=== PATIENT | male | born 1950 | race Caucasian/White ===

== ENCOUNTER 2016-03-17 13:39 | Inpatient (IN) | payer OTHER ==
[2016-03-16 14:30] VITALS: O2SAT 97
[~2016-03-17] VITALS: Ht 172.7 cm; Wt 75.0 kg
[~2016-03-17 13:39] MED LIST: ACYC-1 PO; ALBU8I INH; CARV12.52 PO; CHOL1CAP6 PO; DIOV320T PO; OMEP20TA PO; PROC90TA PO; TRAZ50TA4 PO
[2016-03-17 13:41] VITALS: BP 148/78; PULSE 82; RESP 14; TEMP 98.3; O2SAT 95
[2016-03-17] MEDS ORDERED: SODIUM CHLORIDE 0.9% FLUSH 5 ML FLUSH IVF PRN (14:15)
[2016-03-17] MEDS ORDERED: KETOROLAC TROMETHAMINE 30 MG/ML (IVP) VIAL IV PUSH ONE (14:15)
[2016-03-17] MEDS ORDERED: VITA100T15 PO (14:19)
[2016-03-17] MEDS ORDERED: MIRTA15 PO (14:19)
[2016-03-17] MEDS ORDERED: VALS1TAB70 PO (14:19)
[2016-03-17] MEDS ORDERED: CARV25TA PO (14:19)
[2016-03-17] MEDS ORDERED: TRAZ50TA12 PO (14:19)
[2016-03-17] MEDS ORDERED: NIFE20 PO (14:19)
[2016-03-17] MEDS ORDERED: HARVONI PO (14:19)
[2016-03-17] MEDS ORDERED: D 101000 (14:19)
[2016-03-17] MEDS ORDERED: OMEP20TA PO (14:19)
--- NOTE | 2016-03-17 14:33 | PD ---
HPI Chief Complaint: Dizziness Time Seen by Provider: 14:06 Travel History International Travel<30 days: No Contact w/Intl Traveler<30days: No Traveled to known affect area: No History of Present Illness HPI 66-year-old male with history of COPD still smoking, hepatitis C here with complaint of dizziness and flulike symptoms. Patient has been ill for the last 3 days with body aches, low-grade fevers in the 99 range, increased chronic cough. He notes generalized bodyaches, but no focal pain. He has a slight chronic smoker's cough that is slightly increased from his baseline. Primarily dry and nonproductive. He notes a sense of pressure within the sinuses and ears with a slight vertiginous symptom. He denies any significant nasal drainage or congestion. No recent travel or sick contacts. 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) Other Surgery: Yes (HERNIA REPAIR) Family History Family Hypercholesterolemia: Yes Social History Alcohol Use: Yes (6PK DAY) Tobacco Use: Yes (1/2 PPD) Substance Use: No Allergies-Medications (Allergen,Severity, Reaction): Coded Allergies: Wasp (Verified Allergy, Severe, 03/17/16) USES EPI PEN Aspirin (Verified Adverse Reaction, Mild, 03/17/16) states not supposed to take 2/2 hx hep C Reported Meds & Prescriptions Reported Meds & Active Scripts Active Reported Trazodone (Trazodone HCl) 50 Mg Tab 50 Mg PO BID Carvedilol 25 Mg Tab 25 Mg PO BID [Harvoni] 90 Mg PO DAILY Vitamin B12 (Cyanocobalamin) 100 Mcg Tab 1,000 Mcg PO DAILY Valsartan 320 Mg Tab 320 Mg PO DAILY Nifedipine 20 Mg Cap 30 Mg PO DAILY D 1000 (Cholecalciferol) 1,000 Unit Cap Mirtazapine 15 Mg Tab 15 Mg PO HS Omeprazole 20 Mg Tab 20 Mg PO DAILY Review of Systems Except as stated in HPI: all other systems reviewed are Neg Physical Exam Narrative GENERAL: Elderly in no acute distress SKIN: Warm and dry. HEAD: Normocephalic. EYES:No scleral icterus. No injection or drainage. ENT: Nasal mucosal injection. Posterior pharynx is clear. Mucous membranes pink and moist. TMs clear bilaterally with small clear effusion. NECK: Supple CARDIOVASCULAR: Regular rate and rhythm. No murmur appreciated. RESPIRATORY: No accessory muscle use. Expiratory wheeze GASTROINTESTINAL: Abdomen soft, non-tender, nondistended. MUSCULOSKELETAL: No edema. NEUROLOGICAL: Awake and alert. Motor grossly within normal limits. Normal speech. PSYCHIATRIC: Appropriate mood and affect; insight and judgment normal. Data Data Last Documented VS Vital Signs Date Time Temp Pulse Resp B/P Pulse Ox O2 Delivery O2 Flow Rate FiO2 03/17/16 13:41 98.3 82 14 148/78 95 Room Air 03/16/16 14:30 21 Orders Complete Blood Count With Diff (03/17/16 14:10) Basic Metabolic Panel (Bmp) (03/17/16 14:10) Influenzae A/B Antigen (03/17/16 14:10) Iv Access Insert/Monitor (03/17/16 14:10) Chest, Single Ap (03/17/16 14:10) Sodium Chloride 0.9% Flush (Ns Flush) (03/17/16 14:15) Albuterol-Ipratropium Neb (Duoneb Neb) (03/17/16 14:15) Ketorolac Inj (Toradol Inj) (03/17/16 14:15) Ct Thorax/ Chest W Iv Contrast (03/17/16 ) Labs Laboratory Tests Test 03/17/16 14:30 White Blood Count 9.2 TH/MM3 Red Blood Count 3.92 MIL/MM3 Hemoglobin 12.8 GM/DL Hematocrit 37.9 % Mean Corpuscular Volume 96.6 FL Mean Corpuscular Hemoglobin 32.7 PG Mean Corpuscular Hemoglobin 33.9 % Concent Red Cell Distribution Width 13.5 % Platelet Count 166 TH/MM3 Mean Platelet Volume 7.4 FL Neutrophils (%) (Auto) 68.5 % Lymphocytes (%) (Auto) 21.0 % Monocytes (%) (Auto) 8.0 % Eosinophils (%) (Auto) 1.5 % Basophils (%) (Auto) 1.0 % Neutrophils # (Auto) 6.3 TH/MM3 Lymphocytes # (Auto) 1.9 TH/MM3 Monocytes # (Auto) 0.7 TH/MM3 Eosinophils # (Auto) 0.1 TH/MM3 Basophils # (Auto) 0.1 TH/MM3 CBC Comment DIFF FINAL Differential Comment Sodium Level 139 MEQ/L Potassium Level 3.5 MEQ/L Chloride Level 107 MEQ/L Carbon Dioxide Level 21.5 MEQ/L Anion Gap 11 MEQ/L Blood Urea Nitrogen 17 MG/DL Creatinine 1.37 MG/DL Estimat Glomerular Filtration 52 ML/MIN Rate Random Glucose 112 MG/DL Calcium Level 8.7 MG/DL MDM Medical Decision Making Medical Screen Exam Complete: Yes Emergency Medical Condition: Yes Medical Record Reviewed: Yes Differential Diagnosis 66-year-old male with history of COPD still smoking, hepatitis C here with 3 days of flulike symptoms. Differential includes viral syndrome, influenza, sinusitis, otitis, COPD exacerbation, bronchitis, pneumonia. Narrative Course Patient placed on monitor, IV established and blood obtained. Patient given 30 mg Toradol, DuoNeb 2. Portable chest x-ray showed bilateral basilar faint areas of airspace disease, somewhat rounded, infiltrate versus mass. Recommend CT. CBC, BMP, influenza unremarkable. CT of the chest with IV contrast ordered , results remain pending at the time this dictation. Patient signed out to oncoming provider waiting results of same. Sissy Garcia MD Mar 17, 2016 14:33
[2016-03-17] MEDS: RESP: ALBUTEROL 2.5 MG/IPRATROPIUM 0.5 MG NEB (SCH) INH ×2 (14:42→14:43)
[2016-03-17 14:53] LABS: AUTOMATED NEUTROPHIL # 6.3 TH/MM3 (1.8-7.7); BASOPHIL # 0.1 TH/MM3 (0-0.2); EOSINOPHIL # 0.1 TH/MM3 (0-0.4); EOSINOPHIL % 1.5 % (0.0-4.0); HEMATOCRIT 37.9 % (39.0-51.0); HEMO FLAGS DIFF FINAL; LYMPHOCYTE # 1.9 TH/MM3 (1.0-4.8); MEAN CELL VOLUME 96.6 FL (80.0-100.0); MEAN CORPUSCULAR HEMOGLOBIN 32.7 PG (27.0-34.0); MEAN CORPUSCULAR HGB CONC 33.9 % (32.0-36.0); NEUT % 68.5 % (16.0-70.0); PLATELET COUNT 166 TH/MM3 (150-450); RED BLOOD COUNT 3.92 MIL/MM3 (4.50-5.90); RED CELL DISTRIBUTION WIDTH 13.5 % (11.6-17.2); WHITE BLOOD COUNT 9.2 TH/MM3 (4.0-11.0)
[2016-03-17 15:02] LABS: BICARBONATE 21.5 MEQ/L (21.0-32.0); POTASSIUM 3.5 MEQ/L (3.5-5.1)
--- NOTE | 2016-03-17 15:25 | RADRPT ---
EXAM DATE/TIME: 03/17/2016 15:15 [facility] COMPARISON: No previous studies available for comparison. INDICATIONS : Short of breath. Pt. c/o weakness, and has a low grade fever. MEDICAL HISTORY : None. SURGICAL HISTORY : None. ENCOUNTER: Initial ACUITY: 4 - 6 days PAIN SCORE: 0/10 LOCATION: Bilateral chest FINDINGS: Faint patchy densities or airspace disease is noted in both lung bases laterally on the right and bas al laterally on the left. Differential is infiltrate versus mass. CT scan recommended . CONCLUSION: Bilateral basilar faint areas of airspace disease somewhat rounded which could represent either infil trate or subtle mass. CT scan recommended Sebas Thomas MD on March 17, 2016 at 15:21 Board Certified Radiologist. This report was verified electronically.
[2016-03-17 16:30] VITALS: BP 154/76; PULSE 90; RESP 19; O2SAT 95
[2016-03-17] MEDS ORDERED: IOHEXOL 350 MG/ML 10 ML VIAL (for RAD DIAG) IV ONE (16:59)
--- NOTE | 2016-03-17 17:07 | PD ---
Physical Exam Narrative Patient was seen by ED physician and signed out to me. Data Data Last Documented VS Vital Signs Date Time Temp Pulse Resp B/P Pulse Ox O2 Delivery O2 Flow Rate FiO2 03/17/16 13:41 98.3 82 14 148/78 95 Room Air 03/16/16 14:30 21 Orders Complete Blood Count With Diff (03/17/16 14:10) Basic Metabolic Panel (Bmp) (03/17/16 14:10) Influenzae A/B Antigen (03/17/16 14:10) Iv Access Insert/Monitor (03/17/16 14:10) Chest, Single Ap (03/17/16 14:10) Sodium Chloride 0.9% Flush (Ns Flush) (03/17/16 14:15) Albuterol-Ipratropium Neb (Duoneb Neb) (03/17/16 14:15) Ketorolac Inj (Toradol Inj) (03/17/16 14:15) Ct Thorax/ Chest W Iv Contrast (03/17/16 ) Iohexol 350 Inj (Omnipaque 350 Inj) (03/17/16 16:59) Labs Laboratory Tests Test 03/17/16 14:30 White Blood Count 9.2 TH/MM3 Red Blood Count 3.92 MIL/MM3 Hemoglobin 12.8 GM/DL Hematocrit 37.9 % Mean Corpuscular Volume 96.6 FL Mean Corpuscular Hemoglobin 32.7 PG Mean Corpuscular Hemoglobin 33.9 % Concent Red Cell Distribution Width 13.5 % Platelet Count 166 TH/MM3 Mean Platelet Volume 7.4 FL Neutrophils (%) (Auto) 68.5 % Lymphocytes (%) (Auto) 21.0 % Monocytes (%) (Auto) 8.0 % Eosinophils (%) (Auto) 1.5 % Basophils (%) (Auto) 1.0 % Neutrophils # (Auto) 6.3 TH/MM3 Lymphocytes # (Auto) 1.9 TH/MM3 Monocytes # (Auto) 0.7 TH/MM3 Eosinophils # (Auto) 0.1 TH/MM3 Basophils # (Auto) 0.1 TH/MM3 CBC Comment DIFF FINAL Differential Comment Sodium Level 139 MEQ/L Potassium Level 3.5 MEQ/L Chloride Level 107 MEQ/L Carbon Dioxide Level 21.5 MEQ/L Anion Gap 11 MEQ/L Blood Urea Nitrogen 17 MG/DL Creatinine 1.37 MG/DL Estimat Glomerular Filtration 52 ML/MIN Rate Random Glucose 112 MG/DL Calcium Level 8.7 MG/DL [facility] Supervised Visit with RAUDEL: No Interpretation(s) Last Impressions Chest X-Ray 03/17/16 1410 Signed Impressions: Service Date/Time: Thursday, March 17, 2016 15:15 - CONCLUSION: Bilateral basilar faint areas of airspace disease somewhat rounded which could represent either infiltrate or subtle mass. CT scan recommended Sebas Thomas MD Chest CT 03/17/16 0000 Signed Impressions: Service Date/Time: Thursday, March 17, 2016 16:35 - CONCLUSION: 1. Mild emphysema with multiple patchy foci of airspace consolidation some of which appear mildly nodular. These are peripherally oriented and raise suspicion for septic emboli. Other potential considerations include cryptogenic organizing pneumonia (AMPOULE SEALER). The appearance is not typical for metastatic disease. Some other considerations would include pulmonary vasculitis or eosinophilic pneumonia. 2. Severe coronary artery calcification. Lyle Urban MD Diagnosis Primary Impression: Pneumonia Qualified Code: J18.9 - Pneumonia of both lungs due to infectious organism, unspecified part of lung Additional Impression: Septic embolism Elder Tidwell MD Mar 17, 2016 17:06
--- NOTE | 2016-03-17 17:21 | RADRPT ---
EXAM DATE/TIME: 03/17/2016 16:35 [facility] COMPARISON: CHEST SINGLE AP, March 17, 2016, 15:15. INDICATIONS : Abnormal chest x-ray. Short of breath. Fever. Dizziness. IV CONTRAST: 70 cc Omnipaque 350 (iohexol) IV RADIATION DOSE: 9.03 CTDIvol (mGy) MEDICAL HISTORY : Chronic obstructive pulmonary disease. Hypertension. SURGICAL HISTORY : None. ENCOUNTER: Initial ACUITY: 3 days PAIN SCALE: 0/10 LOCATION: chest TECHNIQUE: Volumetric scanning of the chest was performed. Using automated exposure control and adjustment of t he mA and/or kV according to patient size, radiation dose was kept as low as reasonably achievable to obtain optimal diagnostic quality images. FINDINGS: LUNGS: There is mild centrilobular emphysema. Multiple peripherally oriented bilateral foci of airspace cons olidation is present some of which have a somewhat nodular appearance. These are more numerous in the lower lung zones. No pleural effusion or pneumothorax is present. PLEURA: There is no pleural thickening or pleural effusion. MEDIASTINUM: The heart and great vessels demonstrate no acute abnormality. There is severe coronary artery calcif ication and there is atherosclerotic disease of aorta. A single enlarged left hilar lymph node is magdalene ntified measuring 10 mm in short axis diameter. AXILLAE: Within normal limits. No lymphadenopathy. SKELETAL: No acute osseous abnormality is visualized. MISCELLANEOUS: The visualized upper abdominal organs demonstrate no acute abnormality. CONCLUSION: 1. Mild emphysema with multiple patchy foci of airspace consolidation some of which appear mildly nod ular. These are peripherally oriented and raise suspicion for septic emboli. Other potential consider ations include cryptogenic organizing pneumonia (SEAM SEWER). The appearance is not typical for metastatic d isease. Some other considerations would include pulmonary vasculitis or eosinophilic pneumonia. 2. Severe coronary artery calcification. Lyle Urban MD on March 17, 2016 at 17:10 Board Certified Radiologist. This report was verified electronically.
[2016-03-17] MEDS ORDERED: LEVOFLOXACIN 750 MG PREMIX INJ 150 ML IV ONE (18:15)
[2016-03-17] MEDS ORDERED: BISACODYL 10 MG SUPP PR PRN (18:15)
[2016-03-17] MEDS ORDERED: SODIUM CHLORIDE 0.9% FLUSH 5 ML FLUSH FLUSH PRN (18:15)
[2016-03-17] MEDS ORDERED: NALOXONE HCL 0.4 MG/ML AMP IV PRN (18:15)
[2016-03-17] MEDS ORDERED: LEVOFLOXACIN 750 MG PREMIX INJ 150 ML IV SCH (18:15)
[2016-03-17] MEDS ORDERED: VANCOMYCIN INJ 1,000 MG in SODIUM CHLOR 0.9% 250 ML INJ 250 ML IV ONE (18:15)
[2016-03-17] MEDS ORDERED: MAGNESIUM HYDROXIDE SUSP 30 ML CUP PO PRN (18:15)
[2016-03-17] MEDS ORDERED: SENNOSIDES 8.6 MG TAB PO PRN (18:15)
[2016-03-17] MEDS: SODIUM CHLOR 0.9% 1000 ML INJ 1,000 ML IV SCH (18:29)
[2016-03-17] MEDS: HEPARIN SODIUM - SQ 10,000 UNITS/ML VIAL SQ SCH (20:55)
[2016-03-17] MEDS ORDERED: SODIUM CHLORIDE 0.9% FLUSH 5 ML FLUSH FLUSH SCH (21:00)
[2016-03-17 21:15] VITALS: BP 149/72; PULSE 92; RESP 18; O2SAT 96
[2016-03-18] VITALS (9 sets, daily range): BP systolic 113–133; BP diastolic 56–78; PULSE 68–90; RESP 18–21; TEMP 97.6–98.8; O2SAT 91–98
[2016-03-18] MEDS ORDERED: diphenhydrAMINE HCL 50 MG CAP PO ONE (01:30)
[2016-03-18] MEDS: SODIUM CHLOR 0.9% 1000 ML INJ 1,000 ML IV SCH ×2 (04:03→09:02)
--- NOTE | 2016-03-18 04:36 | HHI.HP ---
[facility] Ad[facility] Diagnosis pneumonia. Septic emboli. Diagnoses: (1) Pneumonia (2) Septic embolism (3) Alcohol abuse (4) Tobacco abuse Chief Complaint: Dizziness and myalgias Travel History International Travel<30 Days: No Contact w/Intl Traveler <30 Da: No Traveled to Known Affected Are: No History of Present Illness Mr. Strange is a 66-year-old male with a past medical history of COPD, gastroesophageal reflux disease, and hepatitis C taking Harvoni (treatment not completed) who presented to the emergency room on 03/17/2016 complaining of dizziness, myalgias, low-grade fevers around 99, and increased chronic nonproductive cough for 3 days. He is seen in the CDU and indicates that his symptoms were severe, warranting ER evaluation. He denies any history of IV drug abuse. He is a daily drinker consuming about 3-6 beers per day and he also smokes half a pack a day for about [address] scan of chest with IV contrast shows mild emphysema with multiple patchy foci of airspace consolidation some of which appear mildly nodular. These are peripherally oriented to raise suspicion for septic emboli. Additional considerations include cryptogenic organizing pneumonia. The appearance is not typical for metastatic disease. Other considerations included pulmonary vasculitis and eosinophilic pneumonia. Renal insufficiency is noted with BUN 17, creatinine 1.37, and estimated GFR 52. Review of Systems Constitutional: COMPLAINS OF: Fatigue, Fever, DENIES: Chills Respiratory: COMPLAINS OF: Cough, Shortness of breath, DENIES: Sputum production Cardiovascular: DENIES: Chest pain, Palpitations Gastrointestinal: DENIES: Abdominal pain, Black stools, Bloody stools Genitourinary: DENIES: Hematuria, Dysuria Musculoskeletal: COMPLAINS OF: Muscle aches, Stiffness Neurologic: DENIES: Headache, Seizures Other All other systems are reviewed and are otherwise negative Past Family Social History Past Medical History Hypertension Hep C on Harvoni x 2 months (therapy to be 18 weeks) GERD Past Surgical History Hernia 14 - 15 years ago . Reported Medications Reported Meds & Active Scripts Active Reported Trazodone (Trazodone HCl) 50 Mg Tab 50 Mg PO BID Carvedilol 25 Mg Tab 25 Mg PO BID [Harvoni] 90 Mg PO DAILY Vitamin B12 (Cyanocobalamin) 100 Mcg Tab 1,000 Mcg PO DAILY Valsartan 320 Mg Tab 320 Mg PO DAILY Nifedipine 20 Mg Cap 30 Mg PO DAILY D 1000 (Cholecalciferol) 1,000 Unit Cap Mirtazapine 15 Mg Tab 15 Mg PO HS Omeprazole 20 Mg Tab 20 Mg PO DAILY . Allergies: Coded Allergies: Wasp (Verified Allergy, Severe, 03/17/16) USES EPI PEN Aspirin (Verified Adverse Reaction, Mild, 03/17/16) states not supposed to take 2/2 hx hep C Active Ordered Medications Current Medications IV Flush (NS Flush) 2 ml UNSCH PRN IVF FLUSH AFTER USING IV ACCESS; Start 03/17 at 14:15; Stop 03/17/16 at 18:15; Status DC Albuterol/ Ipratropium (Duoneb Neb) 1 ampule Q15M INH Last administered on 03/17 14:43; Start 03/17/16 at 14:15; Stop 03/17/16 at 14:31; Status DC Ketorolac Tromethamine (Toradol Inj) 30 mg ONCE ONCE IV PUSH Last administered on 03/17/16 14:49; Start 03/17/16 at 14:15; Stop 03/17/16 at 14:16 ; Status DC Iohexol 70 ml 70 ml STK-MED ONCE IV Last administered on 03/17/16 16:59; Start 03/17/16 at 16:59; Stop 03/17/16 at 17:00; Status DC Levofloxacin/ Dextrose 150 ml @ 100 mls/hr ONCE ONCE IV Last administered on 03/17/16 18:28; Start 03/17/16 at 18:15; Stop 03/17/16 at 19:44; Status DC Vancomycin HCl 1000 mg/Sodium Chloride 250 ml @ 250 mls/hr ONCE ONCE IV Last administered on 03/17/16 20:49; Start 03/17/16 at 18:15; Stop 03/17/16 at 19:14 ; Status DC Sodium Chloride (NS 1000 ml Inj) 1,000 ml @ 100 mls/hr Q10H IV Last administered on 03/17/16 18:29; Start 03/17/16 at 18:03 IV Flush (NS Flush) 2 ml UNSCH PRN FLUSH FLUSH AFTER USING IV ACCESS; Start at 18:15 IV Flush (NS Flush) 2 ml BID FLUSH ; Start 03/17/16 at 21:00 Bisacodyl (Dulcolax Supp) 10 mg DAILY PRN RI CONSTIPATION; Start 03/17/16 at 18 :15 Magnesium Hydroxide (Milk Of Abhijeet Liq) 30 ml Q12H PRN PO CONSTIPATION; Start 03/17/16 at 18:15 Sennosides (Senokot) 17.2 mg Q12H PRN PO CONSTIPATION; Start 03/17/16 at 18:15 Heparin Sodium (Porcine) (Heparin Inj) 5,000 units Q12H SQ Last administered on 03/17/16 20:55; Start 03/17/16 at 18:15 Naloxone HCl 0.4 mg 0.4 mg UNSCH PRN IV SEE LABEL COMMENTS; Start 03/17/16 at 18:15 Vancomycin HCl 1000 mg/Sodium Chloride 250 ml @ 250 mls/hr Q12H IV ; Start at 08:00 Levofloxacin/ Dextrose 150 ml @ 100 mls/hr Q24H IV ; Start 03/17/16 at 18:15; Status Cancel Levofloxacin/ Dextrose (Levaquin 750 Mg Premix Inj) 150 ml @ 100 mls/hr Q24H IV ; Start 03/18/16 at 18:00 Diphenhydramine HCl (Benadryl) 50 mg ONCE ONCE PO Last administered on 01:30; Start 03/18/16 at 01:30; Stop 03/18/16 at 01:31; Status DC Nicotine (Habitrol 14 Mg Patch.24 Hr) 1 patch ONCE ONCE TD ; Start 03/18/16 at 06:00; Stop 03/18/16 at 06:01 . Family History Sister, alive and well . Social History Tobacco - smokes x 50 years 12 ppd Alcohol - drinks 3 - 6 a day, last drink yesterday Illicit drugs - never Physical Exam Vital Signs Vital Signs Date Time Temp Pulse Resp B/P Pulse Ox O2 Delivery O2 Flow Rate FiO2 03/17/16 21:15 92 18 149/72 96 Room Air 03/17/16 16:30 90 19 154/76 95 03/17/16 16:30 90 19 95 Room Air 03/17/16 13:41 98.3 82 14 148/78 95 Room Air Physical Exam GENERAL: This is an chronically ill appearing patient, in no apparent distress. SKIN: No rashes, ecchymoses or lesions. Cool and dry. HEAD: Atraumatic. Normocephalic. EYES: No scleral icterus. No injection or drainage. ENT: Nose without bleeding, purulent drainage. NECK: Trachea midline. No JVD or lymphadenopathy. CARDIOVASCULAR: Regular rate and rhythm without murmurs, gallops, or rubs. RESPIRATORY: Breath sounds with diminished air exchange, equal bilaterally. No wheezes, rales, or rhonchi. GASTROINTESTINAL: Abdomen soft, non-tender, nondistended. No guarding. MUSCULOSKELETAL: Extremities without clubbing, cyanosis, or edema. No calf tenderness. NEUROLOGICAL: Awake and alert. Motor and sensory grossly within normal limits. Normal speech. . Laboratory Laboratory Tests Test 03/17/16 03/17/16 14:30 18:20 White Blood Count 9.2 Red Blood Count 3.92 Hemoglobin 12.8 Hematocrit 37.9 Mean Corpuscular Volume 96.6 Mean Corpuscular Hemoglobin 32.7 Mean Corpuscular Hemoglobin 33.9 Concent Red Cell Distribution Width 13.5 Platelet Count 166 Mean Platelet Volume 7.4 Neutrophils (%) (Auto) 68.5 Lymphocytes (%) (Auto) 21.0 Monocytes (%) (Auto) 8.0 Eosinophils (%) (Auto) 1.5 Basophils (%) (Auto) 1.0 Neutrophils # (Auto) 6.3 Lymphocytes # (Auto) 1.9 Monocytes # (Auto) 0.7 Eosinophils # (Auto) 0.1 Basophils # (Auto) 0.1 CBC Comment DIFF FINAL Differential Comment Sodium Level 139 Potassium Level 3.5 Chloride Level 107 Carbon Dioxide Level 21.5 Anion Gap 11 Blood Urea Nitrogen 17 Creatinine 1.37 Estimat Glomerular Filtration 52 Rate Random Glucose 112 Calcium Level 8.7 Lactic Acid Level 0.9 Date/Time Procedure Status Source Growth 03/18/16 00:15 Legionella Antigen Received Urine Random Urine Pending 03/18/16 00:15 Streptococcus pneumoniae Antigen (M Received Urine Random Urine Pending 03/17/16 18:20 Aerobic Blood Culture Received Blood Peripheral Pending 03/17/16 18:20 Anaerobic Blood Culture Received Blood Peripheral Pending 03/17/16 14:30 Influenza Types A,B Antigen (DHAVAL) - Final Complete Nasal Washing NEGATIVE FOR FLU A AND B ANTIGEN.... Result Diagram: 03/17/16 1430 03/17/16 1430 Imaging Last Impressions Chest X-Ray 03/17/16 1410 Signed Impressions: Service Date/Time: Thursday, March 17, 2016 15:15 - CONCLUSION: Bilateral basilar faint areas of airspace disease somewhat rounded which could represent either infiltrate or subtle mass. CT scan recommended Sebas Thomas MD Chest CT 03/17/16 0000 Signed Impressions: Service Date/Time: Thursday, March 17, 2016 16:35 - CONCLUSION: 1. Mild emphysema with multiple patchy foci of airspace consolidation some of which appear mildly nodular. These are peripherally oriented and raise suspicion for septic emboli. Other potential considerations include cryptogenic organizing pneumonia (SURVEYOR). The appearance is not typical for metastatic disease. Some other considerations would include pulmonary vasculitis or eosinophilic pneumonia. 2. Severe coronary artery calcification. Lyle Urban MD . Assessment and Plan Problem List: (1) Septic embolism ICD Code: I26.90 Status: Acute (2) Pneumonia ICD Code: J18.9 Status: Acute (3) Tobacco abuse ICD Code: Z72.0 Status: Chronic (4) Alcohol abuse ICD Code: F10.10 Status: Chronic Assessment and Plan Mr. Strange is a 66-year-old male with a past medical history of COPD, gastroesophageal reflux disease, and hepatitis C taking Harvoni (treatment not completed) who presented to the emergency room on 03/17/2016 complaining of dizziness, myalgias, low-grade fevers around 99, and increased chronic nonproductive cough for 3 days. Pneumonia - pulmonology consulted - Levofloxacin 750 mg IV q24h - Vancomycin 1000 mg IV q12h Septic Emboli - ID consulted - await blood culture results - consider echocardiogram Alcohol abuse - advised to quit alcohol - CIWA protocol - Seizure precautions - Folic acid, MVI, Thiamine Tobacco abuse - smoking cessation advised - Nicotene patch 14 mg q24 hours top ordered Hepatitis C - Hold Harvoni for now DVT prophylaxis - Heparin 5000 units subq q12h - SCDs Written by Yuni Jaquez, acting as scribe for Dr. Campoverde on 03/18/16 at 04:27. All or portions of this note were transcribed by scribe [Yuni Jaquez]. I, Dr. Wes Campoverde personally performed the history, physical exam, and medical decision making; and confirmed the accuracy of the information in the transcribed note. Authenticated by Dr. Wes Campoverde on 03/18/16 at 0427 Discussed Condition With RN and patient . Physician Certification 2 Midnight Certification Type: Admission for Inpatient Services Order for Inpatient Services The services are ordered in accordance with Medicare regulations or non- Medicare payer requirements, as applicable. In the case of services not specified as inpatient-only, they are appropriately provided as inpatient services in accordance with the 2-midnight benchmark. Estimated LOS (days): 3 days is the estimated time the patient will need to remain in the hospital, assuming treatment plan goals are met and no additional complications. Post-Hospital Plan: Not yet determined Problem Qualifiers (1) Pneumonia: Qualified Code: J18.9 - Pneumonia of both lungs due to infectious organism, unspecified part of lung Yuni Jaquez Mar 18, 2016 04:36 Wes Campoverde MD Apr 29, 2016 07:10
[2016-03-18] MEDS ORDERED: LORazepam 2 MG/ML VIAL IV PUSH PRN ×4 (04:45)
[2016-03-18] MEDS ORDERED: FLUMAZENIL 0.5 MG/5 ML VIAL IV PUSH PRN (04:45)
[2016-03-18] MEDS ORDERED: SODIUM CHLORIDE 0.9% FLUSH 5 ML FLUSH IV FLUSH PRN (04:45)
[2016-03-18] MEDS ORDERED: NICOTINE 14 MG/24 HR PATCH TD ONE (06:00)
[2016-03-18 06:05] LABS: AUTOMATED NEUTROPHIL # 4.7 TH/MM3 (1.8-7.7); BASOPHIL # 0.1 TH/MM3 (0-0.2); BASOPHIL % 0.9 % (0.0-2.0); EOSINOPHIL # 0.2 TH/MM3 (0-0.4); EOSINOPHIL % 2.7 % (0.0-4.0); HEMATOCRIT 31.9 % (39.0-51.0); HEMO FLAGS DIFF FINAL; LYMPH % 23.8 % (9.0-44.0); LYMPHOCYTE # 1.8 TH/MM3 (1.0-4.8); MEAN CELL VOLUME 94.8 FL (80.0-100.0); MEAN CORPUSCULAR HEMOGLOBIN 33.1 PG (27.0-34.0); MEAN CORPUSCULAR HGB CONC 34.9 % (32.0-36.0); MONO % 9.8 % (0.0-8.0); NEUT % 62.8 % (16.0-70.0); PLATELET COUNT 146 TH/MM3 (150-450); RED BLOOD COUNT 3.36 MIL/MM3 (4.50-5.90); RED CELL DISTRIBUTION WIDTH 13.5 % (11.6-17.2); WHITE BLOOD COUNT 7.5 TH/MM3 (4.0-11.0)
[2016-03-18] MEDS: HEPARIN SODIUM - SQ 10,000 UNITS/ML VIAL SQ SCH ×2 (06:15→17:39)
[2016-03-18 06:30] LABS: BICARBONATE 17.4 MEQ/L (21.0-32.0); POTASSIUM 3.5 MEQ/L (3.5-5.1)
--- NOTE | 2016-03-18 08:25 | HHI.PR ---
Subjective Remarks Follow up for pneumonia. The patient reports feeling slightly better today, still with cough, nonproductive overnight. He believes his fever broke, no documented fevers overnight. Denies any chest pains or shortness of breath. He is hungry, wants to eat breakfast. Objective Vitals Vital Signs Date Time Temp Pulse Resp B/P Pulse Ox O2 Delivery O2 Flow Rate FiO2 03/18/16 08:22 98.0 83 18 113/56 92 03/18/16 04:00 98.4 77 18 126/74 98 03/18/16 00:00 97.6 68 21 128/78 98 03/17/16 21:15 92 18 149/72 96 Room Air 03/17/16 16:30 90 19 154/76 95 03/17/16 16:30 90 19 95 Room Air 03/17/16 13:41 98.3 82 14 148/78 95 Room Air Result Diagram: 03/18/16 0538 03/18/16 0538 Imaging Last Impressions Chest X-Ray 03/17/16 1410 Signed Impressions: Service Date/Time: Thursday, March 17, 2016 15:15 - CONCLUSION: Bilateral basilar faint areas of airspace disease somewhat rounded which could represent either infiltrate or subtle mass. CT scan recommended Sebas Thomas MD Chest CT 03/17/16 0000 Signed Impressions: Service Date/Time: Thursday, March 17, 2016 16:35 - CONCLUSION: 1. Mild emphysema with multiple patchy foci of airspace consolidation some of which appear mildly nodular. These are peripherally oriented and raise suspicion for septic emboli. 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 The appearance is not typical for metastatic disease. Some other considerations would include pulmonary vasculitis or eosinophilic pneumonia. 2. Severe coronary artery calcification. Lyle Urban MD Objective Remarks GENERAL: Well-nourished, well-developed male patient in NAD. SKIN: Warm and dry. No rash. HEAD: Normocephalic. Atraumatic. ENT: No nasal bleeding or discharge. Mucous membranes pink and moist. NECK: Supple. Trachea midline. CARDIOVASCULAR: Regular rate and rhythm. S1, S2 noted. No murmur appreciated. RESPIRATORY: No accessory muscle use. Clear to auscultation. Breath sounds equal bilaterally. GASTROINTESTINAL: Abdomen soft, non-tender, nondistended. Normoactive bowel sounds x4. MUSCULOSKELETAL: No obvious deformities. Extremities without clubbing, cyanosis , or edema. NEUROLOGICAL: Awake and alert. No obvious cranial nerve deficits. Motor grossly within normal limits. Normal speech. PSYCHIATRIC: Appropriate mood and affect; insight and judgment normal. Medications and IVs Current Medications Medications (Trade) Dose Ordered Sig/Joseph Route Start Time Stop Time Status Last Admin (NS 1000 ml Inj) 1,000 ml @ 100 mls/hr Q10H IV 03/17/16 18:03 03/17/16 18:29 (Dulcolax Supp) 10 mg DAILY PRN OH 03/17/16 18:15 (Milk Of Magnesia Liq) 30 ml Q12H PRN PO 03/17/16 18:15 (Senokot) 17.2 mg Q12H PRN PO 03/17/16 18:15 (Heparin Inj) 5,000 units Q12H SQ 03/17/16 18:15 03/17/16 20:55 Naloxone HCl 0.4 mg 0.4 mg UNSCH PRN IV 03/17/16 18:15 Vancomycin HCl 1000 mg/Sodium Chloride 250 ml @ 250 mls/hr Q12H IV 03/18/16 08:00 (Levaquin 750 Mg Premix Inj) 150 ml @ 100 mls/hr Q24H IV 03/18/16 18:00 (Coreg) 25 mg BID PO 03/18/16 09:00 (Remeron) 15 mg HS PO 03/18/16 21:00 (Protonix) 20 mg DAILY PO 03/18/16 09:00 (Desyrel) 50 mg BID PO 03/18/16 09:00 (Diovan) 320 mg DAILY PO 03/18/16 09:00 (NS Flush) 2 ml UNSCH PRN IV FLUSH 03/18/16 04:45 (NS Flush) 2 ml BID IV FLUSH 03/18/16 09:00 (Ativan) 1 mg Q4H PRN PO 03/18/16 04:45 (Ativan Inj) 1 mg Q4H PRN IV PUSH 03/18/16 04:45 (Ativan) 2 mg Q2H PRN PO 03/18/16 04:45 (Ativan Inj) 2 mg Q2H PRN IV PUSH 03/18/16 04:45 (Ativan Inj) 2 mg Q1H PRN IV PUSH 03/18/16 04:45 (Ativan Inj) 2 mg Q15M PRN IV PUSH 03/18/16 04:45 (Folate) 1 mg DAILY PO 03/18/16 09:00 03/23/16 08:59 (Vitamin B1) 100 mg DAILY PO 03/18/16 09:00 (Theragran M Tab) 1 tab DAILY PO 03/18/16 09:00 03/23/16 08:59 Urinary Catheter: No Vascular Central Line Catheter: No A/P Problem List: (1) Pneumonia ICD Code: J18.9 Status: Acute (2) Septic embolism ICD Code: I26.90 Status: Acute (3) Alcohol abuse ICD Code: F10.10 Status: Chronic (4) Tobacco abuse ICD Code: Z72.0 Status: Chronic Assessment and Plan 66-year-old male with a past medical history of COPD, GERD, and hepatitis C taking Harvoni (treatment not completed) who presented to the ED on 03/17/2016 complaining of dizziness, myalgias, low-grade fevers around 99, and increased nonproductive cough for 3 days. Pneumonia: CT chest images reviewed by me, showed multiple patchy foci of airspace consolidation, peripherally oriented, raise suspicion for septic emboli. -Urine legionella/streptococcal antigen negative; influenza antigen negative -Continue on IV Vanco and IV Levaquin. -Consult Pulmonology. -Consult infectious disease. Septic Emboli: Seen on imaging as above. - ID consulted - await blood culture results - consider echocardiogram Alcohol abuse - advised to quit alcohol - [place] protocol - Seizure precautions - Folic acid, MVI, Thiamine Tobacco abuse - smoking cessation advised - Nicotine patch 14 mg q24 hours top ordered Hepatitis C - Hold Harvoni for now DVT prophylaxis - Heparin 5000 units subq q12h - SCDs Written by Halima Parker, acting as scribe for Dr. North on 03/18/16 at 08:25. The documentation accurately reflects the work performed [id number] by me Dr. North on 03/18/16 at 08:25. Problem Qualifiers (1) Pneumonia: Qualified Code: J18.9 - Pneumonia of both lungs due to infectious organism, unspecified part of lung Halima Parker PA-C Mar 18, 2016 08:25 Rica North MD Mar 18, 2016 20:02
[2016-03-18] MEDS: VALSARTAN 160 MG TAB PO SCH (08:48)
[2016-03-18] MEDS: THIAMINE HCL 100 MG TAB PO SCH (08:48)
[2016-03-18] MEDS: traZODone HCL 50 MG TAB PO SCH ×2 (08:48→20:48)
[2016-03-18] MEDS: CARVEDILOL 12.5 MG TAB PO SCH ×2 (08:48→20:49)
[2016-03-18] MEDS: PANTOPRAZOLE SOD 20 MG DELAYED RELEASE TAB PO SCH (08:48)
[2016-03-18] MEDS: VANCOMYCIN INJ 1,000 MG in SODIUM CHLOR 0.9% 250 ML INJ 250 ML IV SCH ×2 (08:49→20:50)
[2016-03-18] MEDS: MULTIVITAMINS/MINERALS THERAPEUTIC TAB PO SCH (08:49)
[2016-03-18] MEDS: FOLIC ACID 1 MG TAB PO SCH (08:49)
[2016-03-18] MEDS: SODIUM CHLORIDE 0.9% FLUSH 5 ML FLUSH IV FLUSH SCH ×2 (08:51→20:50)
--- NOTE | 2016-03-18 09:07 | MB ---
cc: EVA BRANNON DATE OF CONSULTATION 03/17/[address] Tovar. REASON FOR CONSULTATION Evaluation of lung infiltrate and possible septic emboli HISTORY OF PRESENT ILLNESS Mr. Strange is a 66-year-old male with history of hepatitis C. He is taking therapy at a [facility]. He came to the hospital with 2-3 days history of not feeling well. He has aches and pains, low grade fever, has cough, no sputum production, did not have any nausea or vomiting. No abdominal pain. No headache. With these symptoms, he came to the hospital. He had a workup. His CBC showed WBC count 9.2, hemoglobin 12.8, hematocrit 37.9, MCV 96, platelet count 166. His sodium 113, potassium 3.5, potassium 107, CO2 21, BUN 17, creatinine 1.37. He had a CT scan of the chest done which shows he has mild emphysema with patchy foci of airspace consolidation which is mildly nodular, possibility of organizing pneumonia, septic emboli or metastatic disease, although it is less likely. PAST MEDICAL HISTORY 1. History of COPD, 2. Hepatitis C, 3. History of hernia surgery. MEDICATIONS He is currently taking 1. Levaquin 750 mg a day. 2. Vancomycin IV. 3. Heparin 5000 q.12 h. ALLERGIES ASPIRIN WASP SOCIAL HISTORY He has been twice. She has a long history of smoking, continues to smoke. Also drinks 3-4 times a day and he takes three to four drinks every time. He admits he is an alcoholic. 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 FAMILY HISTORY He lives with his daughter. He has seven children. REVIEW OF SYSTEMS He is normally up, around and active. Weight is stable. No headache or dizziness. No DVT or embolism seizure, no seizure, stroke or epilepsy. PHYSICAL EXAMINATION GENERAL: An elderly male in no acute distress. BLOOD SUGAR: Blood pressure 115/76, heart rate 90, respirations 19, temperature 98.3. HEENT: Pupils are equal and reactive. NECK: Supple. CHEST: Equal bilaterally. No rhonchi. CARDIAC: S1, S2 normal. ABDOMEN: Soft, nontender, nondistended. Bowel sounds are present. EXTREMITIES: No edema. IMPRESSION 1. Multiple foci of infiltrate, possible infection or septic emboli, although he is not acting very sick. 2. COPD 3. Hepatitis C. 4. Hypertension. PLAN I discussed with the patient we will check his blood culture, also send urine for Legionella and pneumococcal antigen and mycoplasma titer. Continue his antibiotic. If he does not get better, we will consider bronchoscopy. Further treatment will depend on the course in the hospital. Thank you for this consultation. MD VINNY Pope/ /7:10 PM /9:05 AM MTDChicho
[2016-03-18] MEDS: LORazepam 1 MG TAB PO PRN (12:52)
--- NOTE | 2016-03-18 16:03 | HHI.PR ---
Subjective Remarks 66 YO male with Multi focal lung infilt, low grade fever, weak Small amount of sp no pain no Wheezing Objective Vital Signs Vital Signs Date Time Temp Pulse Resp B/P Pulse Ox O2 Delivery O2 Flow Rate FiO2 03/18/16 15:10 98.0 87 18 133/67 91 03/18/16 12:10 98.0 80 18 130/65 92 03/18/16 08:22 98.0 83 18 113/56 92 03/18/16 04:00 98.4 77 18 126/74 98 03/18/16 00:00 97.6 68 21 128/78 98 03/17/16 21:15 92 18 149/72 96 Room Air 03/17/16 16:30 90 19 154/76 95 03/17/16 16:30 90 19 95 Room Air Result Diagram: 03/18/16 0538 03/18/16 0538 Objective Remarks GENERAL: WBWN male, NAD SKIN: Warm and dry. HEAD: Normocephalic. EYES: No scleral icterus. No injection or drainage. NECK: Supple, trachea midline. No JVD or lymphadenopathy. CARDIOVASCULAR: Regular rate and rhythm without murmurs, gallops, or rubs. RESPIRATORY: Breath sounds equal bilaterally. No accessory muscle use. GASTROINTESTINAL: Abdomen soft, non-tender, nondistended. MUSCULOSKELETAL: No cyanosis, or edema. BACK: Nontender without obvious deformity. No CVA tenderness. A/P Assessment and Plan Multifocal lung infilt COPD HTN PLAN: Cont Abx Aerosol prn Check cultures Stable on RA Saul Posada MD Mar 18, 2016 16:03
[2016-03-18] MEDS: LEVOFLOXACIN 750 MG PREMIX INJ 150 ML IV SCH (17:41)
[2016-03-18] MEDS: LORazepam 2 MG TAB PO PRN ×2 (17:44→20:57)
--- NOTE | 2016-03-18 18:15 | MB ---
cc: TISH VALLE MD, FRANKLYN F. MD DATE OF CONSULTATION: 03/18/2016 REASON FOR CONSULTATION: Probable septic pulmonary emboli. REQUESTING PHYSICIAN Dr. Valle HISTORY OF PRESENT ILLNESS: The patient is a 66-year-old white male who presented to the emergency department with dizziness. The patient developed flu-like symptoms with body aches, low grade fever, cough and also dizziness. He has been on treatment for Hepatitis C with Harvoni. He also notes that he has been increasingly weaker over the past few days. Chest x-ray was performed and it showed bilateral bibasilar faint areas of air space disease rounded changes representing either infiltrate or subtle mass. CT scan of the chest showed multiple patchy foci of air space consolidation, some appearing mildly nodular. It is peripherally located and there is suspicion for septic emboli. The patient is not coughing up any sputum. He denies hemoptysis. He denies headache, nausea or vomiting. He does have night sweats. He denies exposure to unusual pets or birds. No unusual travel. Blood cultures were obtained and there is no growth in 24 hours. Influenza testing is negative for influenza A and B. The white blood cell count is normal. He has been afebrile. He presented on 03/17/16. The patient denies weight loss. Denies exposure to sick persons. PAST MEDICAL HISTORY: 1. History of hypertension. 2. Hepatitis C. 3. Gastroesophageal reflux disease. 4. Hernia repair 15 years ago. ALLERGIES ASPIRIN WASPS. MEDICATIONS 1. Levaquin. 2. Coreg. 3. Protonix. 4. Desyrel 5. Diovan. 6. Folic acid. 7. Vancomycin. 8. Ativan. SOCIAL HISTORY Positive alcohol use daily. The patient smokes half-pack cigarettes per day, denies illicit drug use. 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 REVIEW OF SYSTEMS General: Significant for weakness, night sweats and fever. HEAD, EYES, EARS, NOSE, AND THROAT: No visual blurring or diplopia. No nasal bleeding. No nasal drainage. No difficulty swallowing. No soreness of the throat. Neck: No swelling, pain or adenopathy. Cardiovascular: No palpitation or chest pain. Respiratory: Significant for cough. No shortness of breath. Gastrointestinal: No nausea, vomiting, abdominal pain or diarrhea. Genitourinary: No urgency, frequency or dysuria, hematopoeitic. No easy bruising or bleeding. Endocrine: No polyuria or polydipsia. Integumentary: No skin rash or itching. Neurologic: Significant for weakness, dizziness. Integumentary: No skin rash. No itching. PHYSICAL EXAMINATION This is a well-developed slender male who is in no acute distress. Vital signs: Temperature of 98.0, BP 133/67, respirations 89, heart rate 87. HEENT: Atraumatic. Extraocular movements grossly intact. No icterus. Oropharynx, no visible lesion. Neck: Supple without adenopathy. Lungs: Slight rhonchi at the bases, otherwise no rales or wheezing. Heart: Regular rate and rhythm without murmurs, rubs or gallops. Abdomen: Bowel sounds present, soft, no tenderness appreciated. No masses. Rectal: Not performed. Extremities: No clubbing, cyanosis or edema. Distal pulses 2+ symmetrical. Neuro: Nonfocal. Skin: No rash site. Psych: The patient calm and cooperative. LABORATORY DATA WBC 7.5, platelets 146, 62% neutrophils, 23% lymphocytes, 9% monocytes, hemoglobin 11.1, creatinine 1.44, BUN 24, sodium 139. IMPRESSION Abnormal CT scan of the chest suggesting possible septic pulmonary emboli. Patient with recent night sweats and fever. He denies chest pain and has negative blood cultures so far and denies IV drug use. The patient's features make septic pulmonary emboli probably less likely and some other cause for his abnormal CT scan. He may require bronchoscopy to further evaluate the lung lesions if he does not bring up sputum. He currently is not producing any sputum and says he is not coughing much. RECOMMENDATIONS 1. Monitor blood cultures. 2. Continue vancomycin 3. Continue Levaquin. 4. Monitor repeat chest x-ray. 5. Bronchoscopy if nothing is revealing on his workup so far. 6. Follow the Legionella and Mycoplasma serology since he may have atypical pneumonia. Thank you this consultation. I will monitor the patient's progress along with you and make further recommendations upon follow up. Clarke Norman MD FD/MARINA /4:44 PM /5:39 PM
[2016-03-18] MEDS: MIRTAZAPINE 15 MG TAB PO SCH (20:48)
[2016-03-19] VITALS (7 sets, daily range): BP systolic 124–147; BP diastolic 63–75; PULSE 71–82; RESP 18–24; TEMP 97.4–98.5; O2SAT 91–95
[2016-03-19] MEDS: SODIUM CHLOR 0.9% 1000 ML INJ 1,000 ML IV SCH ×2 (00:51→14:01)
[2016-03-19] MEDS: MAGNESIUM SULFATE 1 GM PREMIX 100 ML IV SCH ×2 (05:17→18:27)
[2016-03-19] MEDS: HEPARIN SODIUM - SQ 10,000 UNITS/ML VIAL SQ SCH ×2 (05:55→18:33)
[2016-03-19] MEDS: SODIUM CHLORIDE 0.9% FLUSH 5 ML FLUSH IV FLUSH SCH ×2 (08:30→21:00)
[2016-03-19] MEDS: CARVEDILOL 12.5 MG TAB PO SCH ×2 (08:30→22:04)
[2016-03-19] MEDS: VALSARTAN 160 MG TAB PO SCH (08:34)
[2016-03-19] MEDS: traZODone HCL 50 MG TAB PO SCH ×2 (08:34→22:05)
[2016-03-19] MEDS: PANTOPRAZOLE SOD 20 MG DELAYED RELEASE TAB PO SCH (08:34)
[2016-03-19] MEDS: THIAMINE HCL 100 MG TAB PO SCH (08:34)
[2016-03-19] MEDS: FOLIC ACID 1 MG TAB PO SCH (08:42)
[2016-03-19] MEDS: VANCOMYCIN INJ 1,000 MG in SODIUM CHLOR 0.9% 250 ML INJ 250 ML IV SCH ×2 (08:42→22:05)
[2016-03-19] MEDS: MULTIVITAMINS/MINERALS THERAPEUTIC TAB PO SCH (08:42)
[2016-03-19] MEDS ORDERED: RESP: ALBUTEROL 1.25 MG/3 ML NEB (PRN) NEB (10:45)
--- NOTE | 2016-03-19 10:47 | HHI.PR ---
Subjective Remarks Follow-up for pneumonia. The patient states that he had a slight fever overnight. He denies any chest pain, shortness of breath, cough, nausea, vomiting, chest congestion. He's not on oxygen at home. Objective Vitals Vital Signs Date Time Temp Pulse Resp B/P Pulse Ox O2 Delivery O2 Flow Rate FiO2 03/19/16 08:41 95 03/19/16 07:40 98.5 79 18 125/63 91 03/19/16 03:54 97.4 82 20 131/67 95 03/18/16 23:44 98.3 87 20 129/73 95 03/18/16 19:46 98.3 90 20 133/63 95 03/18/16 17:50 98.7 03/18/16 17:49 98.8 03/18/16 15:10 98.0 87 18 133/67 91 03/18/16 12:10 98.0 80 18 130/65 92 I/O 03/18/16 03/18/16 03/18/16 03/19/16 03/19/16 03/19/16 07:00 15:00 23:00 07:00 15:00 23:00 Output Total 600 ml Balance -600 ml Output Urine Total 600 ml Result Diagram: 03/18/16 0538 03/18/16 0538 Imaging Last Impressions Chest X-Ray 03/17/16 1410 Signed Impressions: Service Date/Time: Thursday, March 17, 2016 15:15 - CONCLUSION: Bilateral basilar faint areas of airspace disease somewhat rounded which could represent either infiltrate or subtle mass. CT scan recommended Sebas Thomas MD Chest CT 03/17/16 0000 Signed Impressions: Service Date/Time: Thursday, March 17, 2016 16:35 - CONCLUSION: 1. Mild emphysema with multiple patchy foci of airspace consolidation some of which appear mildly nodular. These are peripherally oriented and raise suspicion for septic emboli. 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 The appearance is not typical for metastatic disease. Some other considerations would include pulmonary vasculitis or eosinophilic pneumonia. 2. Severe coronary artery calcification. Lyle Urban MD Objective Remarks GENERAL: Well-developed well-nourished. In no acute distress. SKIN: Warm and dry. No lesions noted. HEENT: Normocephalic. Pupils equal and round. Mucous membranes pink and moist. CARDIOVASCULAR: Regular rate and rhythm. No murmur appreciated. RESPIRATORY: No accessory muscle use. Clear to auscultation. Breath sounds equal bilaterally. GASTROINTESTINAL: Abdomen soft, non-tender, nondistended. Bowel sounds x4. MUSCULOSKELETAL: No obvious deformities. No clubbing or cyanosis. No edema. NEUROLOGICAL: Awake and alert. No focal neurological deficits. Moves upper and lower extremities spontaneously. Normal speech. PSYCHIATRIC: Appropriate mood and affect; insight and judgment normal. A/P Problem List: (1) Pneumonia ICD Code: J18.9 Status: Acute (2) Septic embolism ICD Code: I26.90 Status: Acute (3) Alcohol abuse ICD Code: F10.10 Status: Chronic (4) Tobacco abuse ICD Code: Z72.0 Status: Chronic Assessment and Plan 66-year-old male with a past medical history of COPD, GERD, and hepatitis C taking Harvoni (treatment not completed) who presented to the ED on 03/17/2016 complaining of dizziness, myalgias, low-grade fevers around 99, and increased nonproductive cough for 3 days. Pneumonia: CT chest showed multiple patchy foci of airspace consolidation, peripherally oriented, raise suspicion for septic emboli. -Urine legionella/streptococcal antigen negative; influenza antigen negative ; mycoplasma cultures pending -Continue on IV Vanco and IV Levaquin. -Consulted Pulmonology, may need bronchoscopy. -Infectious disease on board. -O2 and nebs as needed Questionable Septic Emboli: Suggested on imaging as above. - ID consulted, doubt true septic emboli, continue antibiotics, may need bronchoscopy - await blood culture results, NGTD Alcohol abuse -Cessation counseling -CIWA protocol -Rally pack Tobacco abuse - smoking cessation advised - Nicotine patch 14 mg q24 hours top ordered Hepatitis C - Hold Harvoni for now Acute kidney injury Creatinine 1.37, 1.44, previously 1.16 on 11/06/14. -IVF and follow-up BMP. DVT prophylaxis - Heparin 5000 units subq q12h - SCDs Written by Fito Thakkar, acting as scribe for Dr. North on 03/19/16 at 10:47. The documentation accurately reflects the work performed [id number] by me Dr. North on 03/19/16 at 10:47. Discharge Planning Disposition pending clinical course. Problem Qualifiers (1) Pneumonia: Qualified Code: J18.9 - Pneumonia of both lungs due to infectious organism, unspecified part of lung Fito Thakkar Mar 19, 2016 10:47 Rica North MD Mar 19, 2016 13:01
[2016-03-19 11:46] LABS: AUTOMATED NEUTROPHIL # 2.4 TH/MM3 (1.8-7.7); BASOPHIL % 0.9 % (0.0-2.0); EOSINOPHIL # 0.1 TH/MM3 (0-0.4); EOSINOPHIL % 2.2 % (0.0-4.0); HEMATOCRIT 30.8 % (39.0-51.0); HEMO FLAGS DIFF FINAL; LYMPH % 31.9 % (9.0-44.0); LYMPHOCYTE # 1.5 TH/MM3 (1.0-4.8); MEAN CELL VOLUME 95.7 FL (80.0-100.0); MEAN CORPUSCULAR HEMOGLOBIN 32.3 PG (27.0-34.0); MEAN CORPUSCULAR HGB CONC 33.7 % (32.0-36.0); MONO % 13.4 % (0.0-8.0); NEUT % 51.6 % (16.0-70.0); PLATELET COUNT 147 TH/MM3 (150-450); RED BLOOD COUNT 3.22 MIL/MM3 (4.50-5.90); RED CELL DISTRIBUTION WIDTH 13.3 % (11.6-17.2); WHITE BLOOD COUNT 4.6 TH/MM3 (4.0-11.0)
[2016-03-19 12:10] LABS: ALKALINE PHOSPHATASE 142 U/L (45-117); ALT (GPT) 20 U/L (12-78); ANION GAP 10 MEQ/L (5-15); AST (GOT) 21 U/L (15-37); BICARBONATE 17.5 MEQ/L (21.0-32.0); BLOOD UREA NITROGEN 17 MG/DL (7-18); CHLORIDE 112 MEQ/L (98-107); GLOMERULAR FILTRATION RATE 60 ML/MIN (>89); POTASSIUM 3.3 MEQ/L (3.5-5.1); SODIUM (NA) 139 MEQ/L (136-145); TOTAL BILIRUBIN ADULT 0.6 MG/DL (0.2-1.0)
[2016-03-19] MEDS ORDERED: POTASSIUM CHLORIDE 20 MEQ CONTROLLED RELEASE TAB PO ONE (13:45)
[2016-03-19] MEDS: LORazepam 1 MG TAB PO PRN ×2 (14:22→22:04)
[2016-03-19 14:41] LABS: MAGNESIUM 1.3 MG/DL (1.5-2.5)
[2016-03-19] MEDS: SODIUM CHLOR 0.45% 1000 ML INJ 1,000 ML IV SCH (18:26)
[2016-03-19] MEDS: LEVOFLOXACIN 750 MG PREMIX INJ 150 ML IV SCH (18:33)
--- NOTE | 2016-03-19 19:26 | HHI.PR ---
Subjective Remarks 66 YO male with Multi focal lung infilt, low grade fever, weak Small amount of sp no pain no Wheezing Feels stronger today Objective Vital Signs Vital Signs Date Time Temp Pulse Resp B/P Pulse Ox O2 Delivery O2 Flow Rate FiO2 03/19/16 15:27 98.0 73 24 135/67 93 03/19/16 11:31 97.7 71 20 124/67 94 03/19/16 08:41 95 03/19/16 07:40 98.5 79 18 125/63 91 03/19/16 03:54 97.4 82 20 131/67 95 03/18/16 23:44 98.3 87 20 129/73 95 03/18/16 19:46 98.3 90 20 133/63 95 I/O 03/18/16 03/18/16 03/18/16 03/19/16 03/19/16 03/19/16 07:00 15:00 23:00 07:00 15:00 23:00 Output Total 600 ml Balance -600 ml Output Urine Total 600 ml Result Diagram: 03/19/16 1125 03/19/16 1125 Objective Remarks GENERAL: WBWN male, NAD SKIN: Warm and dry. HEAD: Normocephalic. EYES: No scleral icterus. No injection or drainage. NECK: Supple, trachea midline. No JVD or lymphadenopathy. CARDIOVASCULAR: Regular rate and rhythm without murmurs, gallops, or rubs. RESPIRATORY: Breath sounds equal bilaterally. No accessory muscle use. GASTROINTESTINAL: Abdomen soft, non-tender, nondistended. MUSCULOSKELETAL: No cyanosis, or edema. BACK: Nontender without obvious deformity. No CVA tenderness. A/P Assessment and Plan Multifocal lung infilt COPD HTN PLAN: Cont Abx Aerosol prn Check cultures Stable on RA DC plans for home Saul Posada MD Mar 19, 2016 19:26
[2016-03-19] MEDS: MIRTAZAPINE 15 MG TAB PO SCH (22:04)
[2016-03-20 00:11] VITALS: BP 130/62; PULSE 73; RESP 16; TEMP 98.4; O2SAT 91
[2016-03-20] MEDS: SODIUM CHLOR 0.45% 1000 ML INJ 1,000 ML IV SCH (04:55)
[2016-03-20 05:28] LABS: AUTOMATED NEUTROPHIL # 2.3 TH/MM3 (1.8-7.7); BASOPHIL # 0.1 TH/MM3 (0-0.2); BASOPHIL % 1.2 % (0.0-2.0); EOSINOPHIL # 0.3 TH/MM3 (0-0.4); EOSINOPHIL % 5.8 % (0.0-4.0); HEMATOCRIT 30.7 % (39.0-51.0); HEMO FLAGS DIFF FINAL; LYMPH % 37.5 % (9.0-44.0); LYMPHOCYTE # 1.9 TH/MM3 (1.0-4.8); MEAN CELL VOLUME 94.7 FL (80.0-100.0); MEAN CORPUSCULAR HEMOGLOBIN 32.4 PG (27.0-34.0); MEAN CORPUSCULAR HGB CONC 34.2 % (32.0-36.0); MONO % 10.3 % (0.0-8.0); NEUT % 45.2 % (16.0-70.0); PLATELET COUNT 162 TH/MM3 (150-450); RED BLOOD COUNT 3.24 MIL/MM3 (4.50-5.90); RED CELL DISTRIBUTION WIDTH 13.3 % (11.6-17.2); WHITE BLOOD COUNT 5.1 TH/MM3 (4.0-11.0)
[2016-03-20 05:54] LABS: BICARBONATE 18.8 MEQ/L (21.0-32.0); MAGNESIUM 1.7 MG/DL (1.5-2.5); POTASSIUM 3.8 MEQ/L (3.5-5.1)
[2016-03-20] MEDS: HEPARIN SODIUM - SQ 10,000 UNITS/ML VIAL SQ SCH (07:34)
[2016-03-20 08:18] VITALS: BP 149/74; PULSE 70; RESP 20; TEMP 97.6; O2SAT 94
[2016-03-20] MEDS: FOLIC ACID 1 MG TAB PO SCH (08:41)
[2016-03-20] MEDS: THIAMINE HCL 100 MG TAB PO SCH (08:41)
[2016-03-20] MEDS: CARVEDILOL 12.5 MG TAB PO SCH (08:41)
[2016-03-20] MEDS: MULTIVITAMINS/MINERALS THERAPEUTIC TAB PO SCH (08:41)
[2016-03-20] MEDS: PANTOPRAZOLE SOD 20 MG DELAYED RELEASE TAB PO SCH (08:41)
[2016-03-20] MEDS: traZODone HCL 50 MG TAB PO SCH (08:41)
[2016-03-20] MEDS: VANCOMYCIN INJ 1,000 MG in SODIUM CHLOR 0.9% 250 ML INJ 250 ML IV SCH (08:42)
[2016-03-20] MEDS: SODIUM CHLORIDE 0.9% FLUSH 5 ML FLUSH IV FLUSH SCH (08:42)
[2016-03-20] MEDS: VALSARTAN 160 MG TAB PO SCH (08:54)
--- NOTE | 2016-03-20 09:31 | HHI.PR ---
Subjective Remarks Follow-up for pneumonia. Patient continues to feel significantly improved. Denies any fever, chills, chest pain, shortness of breath. Objective Vitals Vital Signs Date Time Temp Pulse Resp B/P Pulse Ox O2 Delivery O2 Flow Rate FiO2 03/20/16 08:18 97.6 70 20 149/74 94 03/20/16 00:11 98.4 73 16 130/62 91 03/19/16 21:18 93 03/19/16 20:18 98.1 77 18 147/75 92 03/19/16 15:27 98.0 73 24 135/67 93 03/19/16 11:31 97.7 71 20 124/67 94 I/O 03/19/16 03/19/16 03/19/16 03/20/16 03/20/16 03/20/16 07:00 15:00 23:00 07:00 15:00 23:00 Output Total 600 ml 950 ml Balance -600 ml -950 ml Output Urine Total 600 ml 950 ml # Voids 4 # Bowel Movements 1 Result Diagram: 03/20/16 0505 03/20/16 0505 Imaging Last Impressions Chest X-Ray 03/17/16 1410 Signed Impressions: Service Date/Time: Thursday, March 17, 2016 15:15 - CONCLUSION: Bilateral basilar faint areas of airspace disease somewhat rounded which could represent either infiltrate or subtle mass. CT scan recommended Sebas Thomas MD Chest CT 03/17/16 0000 Signed Impressions: Service Date/Time: Thursday, March 17, 2016 16:35 - CONCLUSION: 1. Mild emphysema with multiple patchy foci of airspace consolidation some of which appear mildly nodular. These are peripherally oriented and raise suspicion for septic emboli. 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 The appearance is not typical for metastatic disease. Some other considerations would include pulmonary vasculitis or eosinophilic pneumonia. 2. Severe coronary artery calcification. Lyle Urban MD Objective Remarks GENERAL: Well-developed well-nourished. In no acute distress. SKIN: Warm and dry. No lesions noted. HEENT: Normocephalic. Pupils equal and round. Mucous membranes pink and moist. CARDIOVASCULAR: Regular rate and rhythm. No murmur appreciated. RESPIRATORY: No accessory muscle use. Clear to auscultation. Right lower lobe bronchial sounds. GASTROINTESTINAL: Abdomen soft, non-tender, nondistended. Bowel sounds x4. MUSCULOSKELETAL: No obvious deformities. No clubbing or cyanosis. No edema. NEUROLOGICAL: Awake and alert. No focal neurological deficits. Moves upper and lower extremities spontaneously. Normal speech. PSYCHIATRIC: Appropriate mood and affect; insight and judgment normal. A/P Problem List: (1) Pneumonia ICD Code: J18.9 Status: Acute (2) Septic embolism ICD Code: I26.90 Status: Acute (3) Alcohol abuse ICD Code: F10.10 Status: Chronic (4) Tobacco abuse ICD Code: Z72.0 Status: Chronic Assessment and Plan 66-year-old male with a past medical history of COPD, GERD, and hepatitis C taking Harvoni (treatment not completed) who presented to the ED on 03/17/2016 complaining of dizziness, myalgias, low-grade fevers around 99, and increased nonproductive cough for 3 days. Pneumonia: CT chest showed multiple patchy foci of airspace consolidation, peripherally oriented, raise suspicion for septic emboli. -Urine legionella/streptococcal antigen negative; influenza antigen negative ; mycoplasma IgG and IgM suggestive of past infection -Continue on IV Vanco and IV Levaquin. -Consulted Pulmonology, cleared for DC -Infectious disease on board. -O2 and nebs as needed Questionable Septic Emboli: Suggested on imaging as above. - ID consulted, doubt true septic emboli, continue antibiotics - Blood cultures with NGTD Alcohol abuse -Cessation counseling -CIWA protocol -Rally pack Tobacco abuse - smoking cessation advised - Nicotine patch 14 mg q24 hours top ordered Hepatitis C - Hold Harvoni for now Acute kidney injury Creatinine 1.37, 1.44, previously 1.16 on 11/06/14. Creatinine improved 1.12 with IVF. Hypokalemia/hypomagnesemia: Replaced orally and IV. Potassium and magnesium within normal limits today. DVT prophylaxis - Heparin 5000 units subq q12h - SCDs Written by Fito Thakkar, acting as scribe for Dr. North on 03/20/16 at 09:31. The documentation accurately reflects the work performed [id number] by me Dr. North on 03/20/16 at 09:31. Discharge Planning Discharge planning pending ID recommendations Problem Qualifiers (1) Pneumonia: Qualified Code: J18.9 - Pneumonia of both lungs due to infectious organism, unspecified part of lung Fito Thakkar Mar 20, 2016 09:31 Rica North MD Mar 20, 2016 13:50
--- NOTE | 2016-03-20 11:38 | HHI.DS ---
Discharge Summary Admission Date Mar 17, 2016 at 18:14 Discharge Date: Mar 20, 2016 Admitting Diagnosis pneumonia. Septic emboli. (1) Pneumonia ICD Code: J18.9 Diagnosis: Principal (2) Alcohol abuse ICD Code: F10.10 Diagnosis: Secondary (3) Tobacco abuse ICD Code: Z72.0 Diagnosis: Secondary Procedures none Brief History - From Admission Mr. Strange is a 66-year-old male with a past medical history of COPD, gastroesophageal reflux disease, and hepatitis C taking Harvoni (treatment not completed) who presented to the emergency room on 03/17/2016 complaining of dizziness, myalgias, low-grade fevers around 99, and increased chronic nonproductive cough for 3 days. He is seen in the CDU and indicates that his symptoms were severe, warranting ER evaluation. He denies any history of IV drug abuse. He is a daily drinker consuming about 3-6 beers per day and he also smokes half a pack a day for about [address] scan of chest with IV contrast shows mild emphysema with multiple patchy foci of airspace consolidation some of which appear mildly nodular. These are peripherally oriented to raise suspicion for septic emboli. Additional considerations include cryptogenic organizing pneumonia. The appearance is not typical for metastatic disease. Other considerations included pulmonary vasculitis and eosinophilic pneumonia. Renal insufficiency is noted with BUN 17, creatinine 1.37, and estimated GFR 52. CBC/BMP: 03/20/16 0505 03/20/16 0505 Significant Findings Laboratory Tests Test 03/17/16 03/18/16 03/19/16 03/20/16 14:30 05:38 11:25 05:05 Red Blood Count 3.92 MIL/MM3 3.36 MIL/MM3 3.22 MIL/MM3 3.24 MIL/MM3 (4.50-5.90) (4.50-5.90) (4.50-5.90) (4.50-5.90) Hemoglobin 12.8 GM/DL 11.1 GM/DL 10.4 GM/DL 10.5 GM/DL (13.0-17.0) (13.0-17.0) (13.0-17.0) (13.0-17.0) Hematocrit 37.9 % 31.9 % 30.8 % 30.7 % (39.0-51.0) (39.0-51.0) (39.0-51.0) (39.0-51.0) Creatinine 1.37 MG/DL 1.44 MG/DL (0.60-1.30) (0.60-1.30) Estimat Glomerular Filtration 52 ML/MIN (>89) 49 ML/MIN (>89) 60 ML/MIN (>89) 66 ML/MIN (>89) Rate Random Glucose 112 MG/DL 124 MG/DL (74-106) (74-106) Platelet Count 146 TH/MM3 147 TH/MM3 (150-450) (150-450) Monocytes (%) (Auto) 9.8 % (0.0-8.0) 13.4 % 10.3 % (0.0-8.0) (0.0-8.0) Chloride Level 108 MEQ/L 112 MEQ/L 114 MEQ/L (98-107) (98-107) (98-107) Carbon Dioxide Level 17.4 MEQ/L 17.5 MEQ/L 18.8 MEQ/L (21.0-32.0) (21.0-32.0) (21.0-32.0) Blood Urea Nitrogen 21 MG/DL (7-18) Calcium Level 8.2 MG/DL 8.3 MG/DL (8.5-10.1) (8.5-10.1) Potassium Level 3.3 MEQ/L (3.5-5.1) Magnesium Level 1.3 MG/DL (1.5-2.5) Alkaline Phosphatase 142 U/L (45-117) Albumin 2.7 GM/DL (3.4-5.0) Eosinophils (%) (Auto) 5.8 % (0.0-4.0) Imaging Last Impressions Chest X-Ray 03/17/16 1410 Signed Impressions: Service Date/Time: Thursday, March 17, 2016 15:15 - CONCLUSION: Bilateral basilar faint areas of airspace disease somewhat rounded which could represent either infiltrate or subtle mass. CT scan recommended Sebas Thomas MD Chest CT 03/17/16 0000 Signed Impressions: Service Date/Time: Thursday, March 17, 2016 16:35 - CONCLUSION: 1. Mild emphysema with multiple patchy foci of airspace consolidation some of which appear mildly nodular. These are peripherally oriented and raise suspicion for septic emboli. Other potential considerations include cryptogenic organizing pneumonia (B[employer] PLATE REMOVER). The appearance is not typical for metastatic disease. Some other considerations would include pulmonary vasculitis or eosinophilic pneumonia. 2. Severe coronary artery calcification. Lyle Urban MD PE at Discharge GENERAL: Well-developed well-nourished. In no acute distress. SKIN: Warm and dry. No lesions noted. HEENT: Normocephalic. Pupils equal and round. Mucous membranes pink and moist. CARDIOVASCULAR: Regular rate and rhythm. No murmur appreciated. RESPIRATORY: No accessory muscle use. Clear to auscultation. Right lower lobe bronchial sounds. GASTROINTESTINAL: Abdomen soft, non-tender, nondistended. Bowel sounds x4. MUSCULOSKELETAL: No obvious deformities. No clubbing or cyanosis. No edema. NEUROLOGICAL: Awake and alert. No focal neurological deficits. Moves upper and lower extremities spontaneously. Normal speech. PSYCHIATRIC: Appropriate mood and affect; insight and judgment normal. Pt update on day of discharge Discussed with ID, Dr. Norman, patient is clear for discharge on oral azithromycin 10 days. Hospital Course 66-year-old male with a past medical history of COPD, GERD, and hepatitis C taking Harvoni (treatment not completed) who presented to the ED on 03/17/2016 complaining of dizziness, myalgias, low-grade fevers around 99, and increased nonproductive cough for 3 days. Pneumonia: CT chest showed multiple patchy foci of airspace consolidation, peripherally oriented, raise suspicion for septic emboli. -Urine legionella/streptococcal antigen negative; influenza antigen negative ; mycoplasma IgG and IgM suggestive of past infection -S/P IV Vanco and IV Levaquin while inpatient, changed to oral azithromycin 10 days as outpatient -Consulted Pulmonology, cleared for DC -Infectious disease, appreciate input, cleared for DC Questionable Septic Emboli: Suggested on imaging as above. - ID consulted, doubt true septic emboli, continue antibiotics as above - Blood cultures with NG x 3 days Alcohol abuse -Cessation counseling -WA protocol -Received Rally pack 3 days Tobacco abuse - smoking cessation advised Hepatitis C - Harvoni was held during hospitalization, resumed, outpatient GI follow-up Acute kidney injury Creatinine 1.37, 1.44, previously 1.16 on 11/06/14. Creatinine improved baseline 1.12 with IVF. Resolved. Hypokalemia/hypomagnesemia: Replaced orally and IV. Potassium and magnesium now within normal limits. Resolved. Written by Fito Thakkar, acting as scribe for Dr. North on 03/20/16 at 1130 The documentation accurately reflects the work performed [id number] by in Dr. North on 03/20/16 at 1130 Pt Condition on Discharge: Stable Discharge Disposition: Discharge Home Discharge Time: > 30 minutes Discharge Instructions DIET: Follow Instructions for: Heart Healthy Diet Activities you can perform: Regular-No Restrictions Follow up Referrals: [facility] New Medications: Azithromycin (Azithromycin) 500 Mg Tab 500 MG PO DAILY Infection #10 Ref 0 TAB Continued Medications: Carvedilol (Carvedilol) 25 Mg Tab 25 MG PO BID #60 Ref 0 TAB Cholecalciferol (D 1000) 1,000 Unit Cap Cyanocobalamin (Vitamin B12) 100 Mcg Tab 1000 MCG PO DAILY #1 BOTTLE Mirtazapine (Mirtazapine) 15 Mg Tab 15 MG PO HS Depression Control #30 Ref 0 TAB Nifedipine (Nifedipine) 20 Mg Cap 30 MG PO DAILY Chest Pain #90 Ref 0 CAP Omeprazole (Omeprazole) 20 Mg Tab 20 MG PO DAILY #30 Ref 0 TAB Trazodone (Trazodone) 50 Mg Tab 50 MG PO BID Control Depression #30 Ref 0 TAB Valsartan (Valsartan) 320 Mg Tab 320 MG PO DAILY #30 Ref 0 TAB ([Harvoni]) 90 MG PO DAILY Fito Thakkar Mar 20, 2016 11:38 Rica North MD Mar 20, 2016 19:32
[2016-03-20 11:46] VITALS: BP 151/81; PULSE 70; RESP 20; TEMP 97.7; O2SAT 95
[2016-03-20] MEDS ORDERED: AZIT500T2 PO (11:51)
--- NOTE | 2016-03-20 11:53 | HHI.IDPN ---
Note Infectious Disease Note ID FOLLOW UP Patient says he feels better. No cough. Denies ADAMS, chills, chest pain. Denies sweats. Afebrile. Mycoplasma IgG titer elevated. Blood culture has no growth. Admitted with body aches, low grade fever, cough and dizziness. PAST MEDICAL HISTORY: 1. History of hypertension. 2. Hepatitis C being treated with Harvoni. 3. Gastroesophageal reflux disease. 4. Hernia repair 15 years ago. ALLERGIES ASPIRIN WASPS. ANTIBIOTICS: 1. Levaquin. 2. Vancomycin. SOCIAL HISTORY Positive alcohol use daily. The patient smokes half-pack cigarettes per day, denies illicit drug use. 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 OBJECTIVE; Vital Signs Date Time Temp Pulse Resp B/P Pulse Ox O2 Delivery O2 Flow Rate FiO2 03/20/16 08:18 97.6 70 20 149/74 94 03/20/16 00:11 98.4 73 16 130/62 91 03/19/16 21:18 93 03/19/16 20:18 98.1 77 18 147/75 92 03/19/16 15:27 98.0 73 24 135/67 93 03/19/16 03/19/16 03/20/16 15:00 23:00 07:00 Output Total 950 ml Balance -950 ml Output Urine Total 950 ml # Voids 4 # Bowel Movements 1 Laboratory Tests Test 03/19/16 03/20/16 11:25 05:05 White Blood Count 4.6 TH/MM3 5.1 TH/MM3 Red Blood Count 3.22 MIL/MM3 3.24 MIL/MM3 Hemoglobin 10.4 GM/DL 10.5 GM/DL Hematocrit 30.8 % 30.7 % Mean Corpuscular Volume 95.7 FL 94.7 FL Mean Corpuscular Hemoglobin 32.3 PG 32.4 PG Mean Corpuscular Hemoglobin 33.7 % 34.2 % Concent Red Cell Distribution Width 13.3 % 13.3 % Platelet Count 147 TH/MM3 162 TH/MM3 Mean Platelet Volume 7.2 FL 7.4 FL Neutrophils (%) (Auto) 51.6 % 45.2 % Lymphocytes (%) (Auto) 31.9 % 37.5 % Monocytes (%) (Auto) 13.4 % 10.3 % Eosinophils (%) (Auto) 2.2 % 5.8 % Basophils (%) (Auto) 0.9 % 1.2 % Neutrophils # (Auto) 2.4 TH/MM3 2.3 TH/MM3 Lymphocytes # (Auto) 1.5 TH/MM3 1.9 TH/MM3 Monocytes # (Auto) 0.6 TH/MM3 0.5 TH/MM3 Eosinophils # (Auto) 0.1 TH/MM3 0.3 TH/MM3 Basophils # (Auto) 0.0 TH/MM3 0.1 TH/MM3 CBC Comment DIFF FINAL DIFF FINAL Differential Comment Laboratory Tests Test 03/19/16 03/20/16 11:25 05:05 Sodium Level 139 MEQ/L 142 MEQ/L Potassium Level 3.3 MEQ/L 3.8 MEQ/L Chloride Level 112 MEQ/L 114 MEQ/L Carbon Dioxide Level 17.5 MEQ/L 18.8 MEQ/L Anion Gap 10 MEQ/L 9 MEQ/L Blood Urea Nitrogen 17 MG/DL 15 MG/DL Creatinine 1.21 MG/DL 1.12 MG/DL Estimat Glomerular Filtration 60 ML/MIN 66 ML/MIN Rate Random Glucose 124 MG/DL 91 MG/DL Calcium Level 8.3 MG/DL 8.7 MG/DL Magnesium Level 1.3 MG/DL 1.7 MG/DL Total Bilirubin 0.6 MG/DL Aspartate Amino Transf 21 U/L (AST/SGOT) Alanine Aminotransferase 20 U/L (ALT/SGPT) Alkaline Phosphatase 142 U/L Total Protein 7.1 GM/DL Albumin 2.7 GM/DL Microbiology Date/Time Procedure Status Source Growth 03/17/16 14:30 Influenza Types A,B Antigen (DHAVAL) - Final Complete Nasal Washing NEGATIVE FOR FLU A AND B ANTIGEN.... 03/17/16 18:15 Aerobic Blood Culture - Preliminary Resulted Blood Peripheral NO GROWTH IN 3 DAYS 03/17/16 18:15 Anaerobic Blood Culture - Preliminary Resulted Blood Peripheral NO GROWTH IN 3 DAYS 03/17/16 18:20 Aerobic Blood Culture - Preliminary Resulted Blood Peripheral NO GROWTH IN 3 DAYS 03/17/16 18:20 Anaerobic Blood Culture - Preliminary Resulted Blood Peripheral NO GROWTH IN 3 DAYS 03/18/16 00:15 Legionella Antigen - Final Complete Urine Random Urine PRESUMPTIVE NEGATIVE FOR LEGIONELLA P... 03/18/16 00:15 Streptococcus pneumoniae Antigen (M - Final Complete Urine Random Urine PRESUMPTIVE NEGATIVE FOR STREPTOCOCCU... Imaging: Chest X-Ray 03/17/16 1410 Signed Impressions: Service Date/Time: Thursday, March 17, 2016 15:15 - CONCLUSION: Bilateral basilar faint areas of airspace disease somewhat rounded which could represent either infiltrate or subtle mass. CT scan recommended Sebas Thomas MD Chest CT 03/17/16 0000 Signed Impressions: Service Date/Time: Thursday, March 17, 2016 16:35 - CONCLUSION: 1. Mild emphysema with multiple patchy foci of airspace consolidation some of which appear mildly nodular. These are peripherally oriented and raise suspicion for septic emboli. Other potential considerations include cryptogenic organizing pneumonia ([employer] RECEPTIONIST). The appearance is not typical for metastatic disease. Some other considerations would include pulmonary vasculitis or eosinophilic pneumonia. 2. Severe coronary artery calcification. Lyle Urban MD PHYSICAL EXAMINATION GENERAL: He is in no acute distress. HEENT: Extraocular movements grossly intact. No icterus. Oropharynx, no visible lesion. Neck: Supple without adenopathy. Lungs: Slight rhonchi persist at the bases. Heart: Regular rate and rhythm without murmurs, rubs or gallops. Abdomen: Bowel sounds present, soft, no tenderness. Extremities: No clubbing, cyanosis or edema. Distal pulses 2+ symmetrical. Neuro: Nonfocal. Skin: No rash site. Psych: The patient calm and cooperative. IMPRESSION Abnormal CT scan of the chest suggesting possible septic pulmonary emboli. Pneumonia atypical RECOMMENDATIONS 1. Stop vancomycin 2. Stop Levaquin. 3. Azithromycin PO x 10 days. Patient is stable and okay for discharge from ID standpoint. [facility]. Clarke Norman MD Mar 20, 2016 11:53
--- NOTE | 2016-03-20 16:53 | HHI.PR ---
Subjective Remarks 66 YO male with Multi focal lung infilt, low grade fever, weak Small amount of sp no pain no Wheezing Feels stronger today No new complaint Objective Vital Signs Vital Signs Date Time Temp Pulse Resp B/P Pulse Ox O2 Delivery O2 Flow Rate FiO2 03/20/16 11:46 97.7 70 20 151/81 95 03/20/16 08:18 97.6 70 20 149/74 94 03/20/16 00:11 98.4 73 16 130/62 91 03/19/16 21:18 93 03/19/16 20:18 98.1 77 18 147/75 92 I/O 03/19/16 03/19/16 03/19/16 03/20/16 03/20/16 03/20/16 07:00 15:00 23:00 07:00 15:00 23:00 Output Total 600 ml 950 ml Balance -600 ml -950 ml Output Urine Total 600 ml 950 ml # Voids 4 # Bowel Movements 1 Result Diagram: 03/20/16 0505 03/20/16 0505 Objective Remarks GENERAL: WBWN male, NAD SKIN: Warm and dry. HEAD: Normocephalic. EYES: No scleral icterus. No injection or drainage. NECK: Supple, trachea midline. No JVD or lymphadenopathy. CARDIOVASCULAR: Regular rate and rhythm without murmurs, gallops, or rubs. RESPIRATORY: Breath sounds equal bilaterally. No accessory muscle use. GASTROINTESTINAL: Abdomen soft, non-tender, nondistended. MUSCULOSKELETAL: No cyanosis, or edema. BACK: Nontender without obvious deformity. No CVA tenderness. A/P Assessment and Plan Multifocal lung infilt COPD HTN PLAN: Cont Abx Aerosol prn Check cultures Stable on RA Abx per Saul Yi MD Mar 20, 2016 16:53
== END 2016-03-20 16:24 | disposition home or self-care (01) | DRG 194 ==
LOC: NEPD 13:39 → NEDA 18:14 → NEPHCDU 03-18 00:26
PROVIDERS: ADMIT Hospitalist; ATTEND Hospitalist
DX: J18.9 Pneumonia, unspecified organism (principal); J44.0 Chronic obstructive pulmonary disease with (acute) lower respiratory infection; F10.20 Alcohol dependence, uncomplicated; F17.210 Nicotine dependence, cigarettes, uncomplicated; K21.9 Gastro-esophageal reflux disease without esophagitis; B19.20 Unspecified viral hepatitis C without hepatic coma; E87.6 Hypokalemia; E83.42 Hypomagnesemia; N28.9 Disorder of kidney and ureter, unspecified; I25.10 Atherosclerotic heart disease of native coronary artery without angina pectoris; I10 Essential (primary) hypertension
CPT/HCPCS: 71010; 71260; 80048; 80053; 83605; 83735; 85025; 86738; 87040; 87449; 87804; 94640; 94664; 96374; J1644; J1885; J1956; J3370; J3475; J7030; J7050; Q0163; Q9967